=== PATIENT | female | born 1980 | race Caucasian/White ===

== ENCOUNTER → 2016-03-08 | Outpatient (CLI) | payer BC | LOC: RAD 09:18 | PROVIDERS: ATTEND Family Medicine | DX: O44.43 Low lying placenta NOS or without hemorrhage, third trimester (principal); Z3A.30 30 weeks gestation of pregnancy | CPT/HCPCS: 76805 ==

== ENCOUNTER 2016-05-11 06:43 | Inpatient (IN) | payer BC ==
[2016-05-11] VITALS (20 sets, daily range): BP systolic 90–119; BP diastolic 50–80
[~2016-05-11] VITALS: Ht 160 cm; Wt 78.0 kg
[2016-05-11] MEDS ORDERED: OXYTOCIN INJ 20 UNIT in NS 1000ml 1,000 ML IV PRN ×2 (07:07→07:15)
[2016-05-11] MEDS ORDERED: FERR325T36 PO (07:07)
[2016-05-11] MEDS ORDERED: PREN-148 PO (07:07)
[2016-05-11] MEDS ORDERED: SODIUM CHLORIDE FLUSH 3 ML SYR ONE (07:09)
[2016-05-11] MEDS ORDERED: CALCIUM CARBONATE CHEWABLE 300 MG (TUMS) TABLET PO PRN ×2 (07:10→07:15)
[2016-05-11] MEDS ORDERED: SODIUM CHLORIDE FLUSH 3 ML SYR IV PRN ×2 (07:10→07:15)
[2016-05-11] MEDS ORDERED: SODIUM CHLORIDE FLUSH 10 ML SYR IV PRN ×2 (07:10→07:15)
--- OUTSIDE RECORDS SUMMARY | 2016-05-11 07:23 | XMS REPORT ---
Author Author [facility]. Organization [facility] Address [address] [facility] [address] [facility] [address] [place] [id number] Phone [phone] Summary purpose CCDA Sent to [facility] Chief Complaint and Reason for Visit Admit Diagnosis 1 POST TERM PREG DELIVERED Problem list Condition Status Certainty Chronicity Onset .Delivery, vaginal Discharged Encounters The following conditions tracked for encounter diagnoses were recorded for this visit: Finding or Diagnosis Status Certainty Chronicity Onset .Delivery, vaginal Discharged Medications Home Medications Medication Directions Started Status Source Iron (ferrous sulfate) oral 1 tablet oral -Daily Current Vitamin tablet 1 tablet oral -Daily Current Vitamin C oral 1 unknown oral -Daily Current ibuprofen 200 mg tablet 600 mg oral As Needed Every 6 Hours for pain Current Tylenol-Codeine #3 oral oral As Needed Every 4 Hours for pain xpath-functions" xmlns:xs="http://www.[employer].org/2001/XMLSchema" />1 tablet Current Colace oral oral As needed for constipation; hemorrhoids Current Allergies, adverse reactions, alerts Allergen Category Ingredient Status Reaction Severity Onset Penicillins Drug Penicillins Active Immunizations No immunizations recorded for this patient visit Relevant diagnostic tests and/or laboratory data RESULTS [id number]:15:00 Discharge Summary delivered 02-11-2014; healthy female at 40 weeks and 6 days gestation. 14-35-203976:44:39 Discharge Summary see discharge summary CBC 36-33-292273:40:00 Result Normal Range Units HGB L 9.5 12.0-16.0 g/dl HCT L 28.0 37.0-47.0 % 15-92-694833:00:00 Result Normal Range Units WBC 6.85 4.8-10.8 x103/mm3 Neutrophil % H 73.2 50-70 % Lymph % L 19.0 20-50 % Cass % 6.4 1.0-9.0 % Eosinophil % 1.3 0-4 % Basophil % 0.1 0-2 % Neutrophil # 5.01 3.0-7.0 x103/mm3 Lymph # 1.30 1.0-4.0 x103/mm3 Cass # 0.44 0.0-0.8 x103/mm3 Eosinophil # 0.09 0-0.5 x103/mm3 Basophil # 0.01 0-0.2 x103/mm3 RBC L 3.44 4.20-5.40 x103/mm3 HGB L 10.4 12.0-16.0 g/dl HCT L 31.2 37.0-47.0 % MCV 90.7 81-99 FL MCH 30.2 27.0-31.0 pg MCHC 33.3 32.0-36.0 g/dl RDW 13.0 12-15 % Platelet 245 150-400 x103/mm3 MPV 9.6 6.0-10.0 FL History of procedures Procedure Code Code Type Description Date Performed Performing Physician 73.59 ICD9-CM MANUAL ASSIST DELIV NEC 02-11-2014 MICHEL FAST 75.69 ICD9-CM REPAIR OB LACERATION NEC 02-11-2014 MICHEL FAST 75.34 ICD9-CM MONITORING NEC 02-11-2014 MICHEL FAST 03.91 ICD9-CM ANESTH INJECT-SPIN CANAL 02-11-2014 MICHEL FAST Functional status Functional Status Finding Observation Time Weight Bearing Statu Full 40-68-238194:41 Cognitive Status Finding Observation Time Level of Consciousne Alert 48-11-829279:00 Oriented to Person Yes 66-72-330823:[address] Yes 61-48-750515:00 Oriented to Time Yes 36-09-047759:00 Eyes - STACIA Yes 20-74-137405:44 Vital signs Type Value Date Respirations 20 75-76-023197:35 Pulse 116 39-99-349472:35 O2 Saturation 100% 70-98-511277:35 Systolic Blood Press 147mm/HG 75-08-499083:35 Diastolic Blood Pres 75mm/HG 44-21-595826:35 Temperature (Fahr) 98.0Degrees 85-61-499582:35 Height 63in 22-47-284601:56 Weight 152.9LB 31-18-151344:56 Social history No Social History or smoking status observations were recorded for this visit. ( Unknown if ever smoked.) Treatment Plan Treatment Plan at Di See post going home instructions Hospital discharge instructions Diagnosis vaginal after cytotec induction at 40 weeks and 6 days Diet Regular; emphasizing fresh fruit, vegetables and fiber. Activity Level as tolerated; no intercourse, douching or tampons for six weeks. Personal Items Retur all personal items returned. Med Dispensed by Pro script for Tylenol #3 sent with patient to fill at pharmacy of her choice. Flu Vaccine Given Current/Not Needed Follow up with Dr. Pulido Appointment Date and in 6 weeks Other Instructions Call for fever over 101 degrees, increased pain or bleeding. Use a stool softener (Colace) as needed for constipation or hemorrhoids.
[2016-05-11 07:29] LABS: MEAN CORPUSCULAR HEMOGLOBIN 29.3 PG (26.0-34.0); MEAN CORPUSCULAR HGB CONC 32.8 g/dL (31.0-37.0); WHITE BLOOD COUNT 10.24 10^3uL (4.0-11.0)
[2016-05-11] MEDS ORDERED: ROPIVACAINE 1% 10 MG/ML (NAROPIN) 20 ML AMPUL ONE (07:32)
--- NOTE | 2016-05-11 08:17 | History and Physical (E) ---
History & Physical (OB) Subjective: CC: contractions 35 year old at 39 1/7 weeks by LMP confirmed with 11 week sono presents with contractions since 05:30. has been uncomplicated. She reports good movement, no vaginal bleeding, and no loss of fluid prior to arrival. Membranes ruptured here at 07:10. PNC: Eduardo PCP: Dr. Lashay Marcial OB Hx: x1 at 41 weeks PMHx: none PSHx: to [place]. Homemaker. No tob/EtOH/ILD. Allergies: Coded Allergies: Penicillins (Verified Allergy, Intermediate, rash, 05/11/16) Home Medications: Reported Medications Ferrous Sulfate (Iron)325 Mg Oivbnr327 Mg PO DAILY 05/11/16 Vit #76/Iron,Carb/Fa (Pnv 29-1 Tablet)1 Each Tablet1 Each PO DAILY 05/11/16 Objective: Laboratory Results Past 24 Hrs 05/11/16 07:20: Hematocrit [Pending], Hemoglobin [Pending], Mean Corpuscular Hemoglobin [Pending ], Mean Corpuscular Hemoglobin Concent [Pending], Mean Corpuscular Volume [ Pending], Mean Platelet Volume [Pending], Platelet Count [Pending], Red Blood Count [Pending], Red Cell Distribution Width [Pending], White Blood Count [ Pending] General: Alert and oriented, NAD Chest: CTA Abdomen: Gravid Cardiovasular: RRR, No murmur Extremities: No edema FHT's: 135, mod reactive, +accels. Cat I. Cx: 9/100/0 [place]: not picking up well now, but prior to epidural Q1-3min Screenings: Blood type: A Positive, Rubella Imm, RPR non-reactive, HBV-, HIV Negative , GBS Negative. Problems/Plans: (1) with 39 completed weeks gestation Assessment & Plan: Epidural placed and patient is comfortable. Proceed with expectant management. Additional Copies to: Lashay Pinto End of Report . JOVANY KNIGHT MD May 11, 2016 08:17
[2016-05-11] MEDS ORDERED: LANOLIN OINTMENT 28 GM TUBE TOP PRN (12:30)
[2016-05-11] MEDS ORDERED: HYDROcodone/APAP 5 MG/325 MG (NORCO) TAB PO PRN (12:30)
[2016-05-11] MEDS ORDERED: ACETAMINOPHEN 500 MG TAB (TYLENOL) PO PRN (12:30)
[2016-05-11] MEDS: IBUPROFEN 600 MG (MOTRIN) TAB PO SCH ×2 (13:10→20:39)
[2016-05-11] MEDS ORDERED: DOCUSATE SODIUM 100 MG (COLACE) CAP PO SCH (21:00)
[2016-05-12] MEDS: IBUPROFEN 600 MG (MOTRIN) TAB PO SCH ×3 (00:30→11:13)
[2016-05-12 08:13] VITALS: BP 94/70
[2016-05-12] MEDS ORDERED: MAGNESIUM HYDROXIDE 80MG/ML (MILK OF MAGNESIA) 30 ML UDC PO SCH (09:00)
--- NOTE | 2016-05-12 12:19 | Vaginal Delivery Summary (E) ---
Vaginal Delivery Summary At 08:37 on 05/11/16 this 35 year old G 2 now P2 spontaneously delivered a viable male infant at 39 1/7 weeks gestation. The patient presented for care at 11 weeks and ultrasound at that time confirmed dates. This complications: None Maternal labs: Blood type: A Positive, Rubella Imm, RPR non-reactive, HBV Neg, HIV Negative , GBS Negative. Tdap booster received on . Flu booster received on * . She presented for spontaneous contractions that started at home at 05:30. At presentation, she was 7 cm dilated. On 05/11/16 at 07:10, SROM occurred. Epidural was placed at 08:00, with good pain relief. At 08:30, she was complete. She pushed for approximately 5 minutes. The head presented occiput anterior and delivered easily, followed by the anterior shoulder. The posterior shoulder and the body followed in a controlled fashion and baby was placed on mom's abdomen. There was a loose nuchal and truncal cord that was not reduced. The cord was allowed to stop pulsing and then clamped x2 and cut by me. The placenta then delivered spontaneously and intact, with 3 vessel cord noted. The pitocin bag was run in. 1st degree laceration was repaired with a running, locking suture of 3-0 Vicryl. There were no other lacerations. Estimated blood loss 100 ml. weight: 7 pounds, 9 ounces, 3420 grams. Apgars: 9 at 1 minute, 9 at 5 minutes, and 9 at 10 minutes. Both mom and baby are stable at this time. JOVANY KNIGHT MD May 11, 2016 15:56
--- NOTE | 2016-05-12 13:03 | Progress Note (E) ---
Post- Progress Note Subjective: Doing well. Nursing is going well. Ambulating, voiding. Tolerating full diet. Pain controlled with occasional ibuprofen. Bleeding decreasing. Objective: Vital Signs Date Time Temp Pulse Resp B/P Pulse Ox O2 Delivery O2 Flow Rate FiO2 05/12/16 08:13 98.1 78 16 94/70 Room air 05/11/16 20:05 97 Laboratory Tests 05/12/16 08:00: Hematocrit 33.60, Hemoglobin 11.2 Blood type: A Positive, Current Medications Calcium Carbonate 1-2 tablets PO q4 ho... Q4H PRN PO; Start 05/11/16 at 07:15 Acetaminophen Total acetaminophen not... Q4H PRN PO; Start 05/11/16 at 12:30 Ibuprofen 600 mg Q6H PO Last administered on 05/12/16 11:13; Admin Dose 600 MG ; Start 05/11/16 at 12:30 Docusate Sodium 100 mg HS PO Last administered on 05/11/16 20:39; Admin Dose 100 MG; Start 05/11/16 at 21:00 Magnesium Hydroxide 30 ml BID PO; Start 05/12/16 at 09:00 Acetaminophen/ Hydrocodone Bitart Total acetaminophen not... Q4H PRN PO; Start 05/11/16 at 12:30 General: Alert and oriented, NAD Abdomen: Soft, non-distended, fundus firm Extremities: No edema Problems/Plans: (1) Normal vaginal delivery Assessment & Plan: Plan discharge today. FU at 6 weeks. JOVANY KNIGHT MD May 12, 2016 12:20
[2016-05-12] MEDS ORDERED: IBUP-1772 PO (13:04)
[2016-05-12] MEDS ORDERED: DOCU100C8 PO (13:04)
--- NOTE | 2016-05-12 19:04 | NUR ---
184 Pt discharged in good condition. Discharge instruction reviewed with pt, who denies questions at this time. Advised her to call with any future questions. Security bands collected and matched. Pt ambulated, while RN carried secured in car seat, accompanied by family to the ER entrance where the family left via private vehicle.
== END 2016-05-12 18:45 | disposition home or self-care (01) | DRG 775 ==
LOC: EUOP 06:43 → OB 06:44 → EUOP 07:12 → OB 07:12
PROVIDERS: ADMIT Family Medicine; ATTEND Family Medicine
PROC: 10E0XZZ Delivery of Products of Conception, External Approach (ICD-10-PCS; principal; 2016-05-11)
PROC: 0HQ9XZZ Repair Perineum Skin, External Approach (ICD-10-PCS; 2016-05-11)
DX: O69.81X0 Labor and delivery complicated by cord around neck, without compression, not applicable or unspecified (principal); O70.0 First degree perineal laceration during delivery; Z3A.39 39 weeks gestation of pregnancy; Z37.0 Single live birth
CPT/HCPCS: 36415; 85014; 85018; 85027; 86850; 86900; 86901